=== PATIENT | female | born 1940 | race Caucasian/White ===

== ENCOUNTER 2016-11-13 08:21 | Inpatient (IN) ==
[2016-11-14 06:13] LABS: Basophils % 0.6 %; Eosinophils # 0.1 K/mcL (0.0-0.6); Eosinophils % 1.7 %; Hematocrit 35.4 % (35.3-44.9); Hemoglobin 12.2 g/dL (11.5-15.4); Immature Granulocytes % 0.2 % (0-4); Lymphocytes # 0.7 K/mcL (0.6-4.6); Mean Corpuscular HGB Conc 34.5 g/dL (31.6-35.5); Mean Corpuscular Hemoglobin 30.9 pg (28.0-33.3); Mean Corpuscular Volume 89.6 fL (83.0-100.0); Mean Platelet Volume 10.1 fL (9.4-12.4); Monocytes # 0.5 K/mcL (0.0-1.3); Monocytes % 10.3 %; Neutrophils # 3.4 K/mcL (1.6-8.9); Platelet Count 164 K/mcL (140-400); Red Blood Count 3.95 M/mcL (3.82-4.97); Segmented Neutrophils % 73.2 %
[2016-11-14 06:15] LABS: Activated Partial Thrombo Time 31.6 Seconds (26.0-36.0); INR 1.1; Prothrombin Time 11.6 Seconds (9.4-12.1)
[2016-11-14 06:26] LABS: BUN/Creatinine Ratio 19 (6-26); Blood Urea Nitrogen 17 mg/dL (7-20); Calcium 8.8 mg/dL (8.6-10.8); Carbon Dioxide 21 mEq/L (19-29); Chloride 107 mEq/L (98-109); Glucose 100 mg/dL (70-99); Osmolality,Calculated 288 (280-300); Potassium 3.9 mEq/L (3.5-4.5); Sodium 138 mEq/L (136-145); eGFR For African Americans > 60 (> 60); eGFR For Non-African Americans > 60 (> 60)
[2016-11-14] MEDS: Cyanocobalamin (B-12) 1,000 MCG/ML VIAL IM SCH (09:26)
[2016-11-14] MEDS: Aspirin 81 MG TAB.CHEW PO SCH (09:26)
[2016-11-14] MEDS: Multivit/Ca/Min/Fe/FA 1 TAB TABLET PO SCH (09:26)
--- NOTE | 2016-11-14 16:57 | Internal Med History&Physical ---
Date of Encounter: 11/16/16 Time of Encounter: 16:55 Assessment and Plan (1) CVA (cerebral vascular accident) Current visit: Yes Status: Acute Qualifiers: Qualified Code(s): I63.8 - Other cerebral infarction (2) Hypertension Current visit: Yes Status: Acute Qualifiers: Qualified Code(s): I10 - Essential (primary) hypertension (3) Hyperlipidemia Current visit: Yes Status: Acute Qualifiers: Qualified Code(s): E78.5 - Hyperlipidemia, unspecified Internal Medicine - H&P: HPI Chief complaint: Patient was seen by neighbor crawling on her hands and knees along the stre Admitted From: Hospital to Hospital Transfer Plans for Post Hospital Care: Home History of present illness: Ms. Finnegan is a 76 year old female She was treated [facility] and brought to [facility] rehabilitation for rehabilitation. This morning she was given her standard medications which by the way she was not taking any meds at home, and spit them out on the floor when the nurse left Past Med Surg Social Fam HX - Past Medical History Medical history: CVA, dementia, hyperlipidemia, hypertension Psychiatric history: no psych history - Past Surgical History Surgical History: - Social History Smoking Status: Never smoker Smokeless Tobacco Status: No Alcohol use: none Drug use: none - Family History Mother Living Status: Age at : 84 Cause of : in her sleep/unknown cause Internal Medicine - H&P: Meds No Known Home Drugs 11/13/16 [History] Allergies No Known Allergies Allergy (Verified 04/11/16 14:10) All Systems PM: A 10-system review of systems was performed and is negative for pertinent findings except as documented above in the HPI. - Constitutional Vitals: Temp Pulse Resp BP Pulse Ox 98 F 73 18 144/78 98 11/14/16 11:50 11/14/16 11:50 11/14/16 11:50 11/14/16 11:50 11/14/16 11:50 - Head Head exam: Present: atraumatic, normal inspection, normocephalic - Neck Neck exam general surgery: Present: supple, trachea midline. Absent: lymphadenopathy - Respiratory Respiratory exam: Present: CTAB. Absent: accessory muscle use, rales, rhonchi, wheezes - Cardiovascular Cardiovascular exam: Present: RRR, +S1, +S2. Absent: diastolic murmur, gallop, rubs, systolic murmur - GI/Abdominal GI/Abdominal exam: Present: normal bowel sounds, soft, no peritoneal signs. Absent: distended, tenderness Internal Med - H&P Results - Labs CBC & Chem 7: 11/14/16 05:55 11/14/16 05:55 Labs: Short CBC 11/14/16 Range/Units 05:55 WBC 4.7 (4.3-11.1) K/mcL Hgb 12.2 (11.5-15.4) g/dL Hct 35.4 (35.3-44.9) % Plt Count 164 (140-400) K/mcL Neutrophils # 3.4 (1.6-8.9) K/mcL BMP 11/14/16 05:55 Sodium 138 Potassium 3.9 Chloride 107 Carbon Dioxide 21 BUN 17 Creatinine 0.90 Glucose 100 H Calcium 8.8 Lab is stable - VTE Documentation of Mechanical Device: Graduated compression elastic hosiery
[2016-11-15] MEDS: Aspirin 81 MG TAB.CHEW PO SCH (08:07)
[2016-11-15] MEDS: Multivit/Ca/Min/Fe/FA 1 TAB TABLET PO SCH (08:08)
[2016-11-15] MEDS: Cyanocobalamin (B-12) 1,000 MCG/ML VIAL IM SCH (12:21)
--- NOTE | 2016-11-15 13:05 | Internal Med Progress Note ---
Date of Encounter: 11/15/16 Time of Encounter: 13:03 - Assessment and plan (1) CVA (cerebral vascular accident) Current Visit: Yes Status: Acute Assessment and plan: Patient apparently status secondary ischemic cerebral accident Qualifiers: Qualified Code(s): I63.8 - Other cerebral infarction (2) Hypertension Current Visit: Yes Status: Acute Assessment and plan: Patient was not taking any medication prior to her CVA this time. Yesterday she spent the medicine out of the floor. The pressure that was not bad today Qualifiers: Qualified Code(s): I10 - Essential (primary) hypertension (3) Hyperlipidemia Current Visit: Yes Status: Acute Assessment and plan: Noted Qualifiers: Qualified Code(s): E78.5 - Hyperlipidemia, unspecified - Time Spent With Patient less than 15 minutes - Subjective Interval history: No significant change patient is cooperating with therapists. And I have emphasized to her please take her medication. - Constitutional Vitals: Temp Pulse Resp BP Pulse Ox 98.6 F 78 16 138/83 98 11/15/16 07:14 11/15/16 07:14 11/15/16 07:14 11/15/16 07:14 11/15/16 07:14 - Head Head exam: Present: atraumatic, normal inspection, normocephalic - Neck Neck exam general surgery: Present: supple, trachea midline. Absent: lymphadenopathy - Respiratory Respiratory exam: Present: CTAB. Absent: accessory muscle use, rales, rhonchi, wheezes - Cardiovascular Cardiovascular exam: Present: RRR, +S1, +S2. Absent: diastolic murmur, gallop, rubs, systolic murmur Internal Medicine: Result - Labs CBC & Chem 7: 11/14/16 05:55 11/14/16 05:55 Labs: Lab stable - ABG Interpretation ABG results: PT/INR, D-dimer PT 11.6 Seconds (9.4-12.1) 11/14/16 05:55 - VTE Documentation of Mechanical Device: Graduated compression elastic hosiery Consult Discharge Plan - Plan Referrals: Anson Yanez MD [Primary Care Provider] -
[2016-11-16] MEDS: Multivit/Ca/Min/Fe/FA 1 TAB TABLET PO SCH (08:07)
[2016-11-16] MEDS: Cyanocobalamin (B-12) 1,000 MCG/ML VIAL IM SCH (08:07)
[2016-11-16] MEDS: Aspirin 81 MG TAB.CHEW PO SCH (08:07)
--- NOTE | 2016-11-16 13:47 | Internal Med Progress Note ---
Date of Encounter: 11/16/16 Time of Encounter: 13:44 - Assessment and plan (1) CVA (cerebral vascular accident) Current Visit: Yes Status: Acute Assessment and plan: CVA or previous problems worse. She is very dysphasic and her cognitive issue are worse Qualifiers: Qualified Code(s): I63.8 - Other cerebral infarction (2) Hypertension Current Visit: Yes Status: Acute Assessment and plan: Blood pressures controlled Qualifiers: Qualified Code(s): I10 - Essential (primary) hypertension (3) Hyperlipidemia Current Visit: Yes Status: Acute Assessment and plan: Noted Qualifiers: Qualified Code(s): E78.5 - Hyperlipidemia, unspecified - Time Spent With Patient less than 15 minutes - Subjective Interval history: Patient took her meds last 2 days which is an improvement. But they are definitely cognitive problems here. As far as mobility she can get up and walk with standby be fine. But this will recommend any 7 24-hour care - Constitutional Vitals: Temp Pulse Resp BP Pulse Ox 100.1 F H 79 20 153/83 95 11/16/16 07:40 11/16/16 07:40 11/16/16 07:40 11/16/16 07:40 11/16/16 07:40 - Head Head exam: Present: atraumatic, normal inspection, normocephalic - Neck Neck exam general surgery: Present: supple, trachea midline. Absent: lymphadenopathy - Respiratory Respiratory exam: Present: CTAB. Absent: accessory muscle use, rales, rhonchi, wheezes - Cardiovascular Cardiovascular exam: Present: RRR, +S1, +S2. Absent: diastolic murmur, gallop, rubs, systolic murmur Internal Medicine: Result - Labs CBC & Chem 7: 11/14/16 05:55 11/14/16 05:55 Labs: Lab is stable - ABG Interpretation ABG results: PT/INR, D-dimer PT 11.6 Seconds (9.4-12.1) 11/14/16 05:55 - VTE Documentation of Mechanical Device: Graduated compression elastic hosiery Consult Discharge Plan - Plan Referrals: Anson Yanez MD [Primary Care Provider] -
--- NOTE | 2016-11-16 14:31 | Psychological Evaluation ---
Date of Encounter: 11/16/16 Time of Encounter: 11:00 History of Present Illness History of present illness: Ms. Finnegan is a 76 year old female admitted to [facility] for inpatient rehabilitation following a recent CVA. She was seen on this date to assess her current cognitive and emotional functioning. Past Medical History Medical history: Significant for HTN, hyperlipidemia and previous CVA. - Psychiatric History Psychiatric history: Reports: no psych history Additional Psychiatric History: There is also no family history of psychiatric or mental health disorders. Home Medications and Allergies No Known Home Drugs 11/13/16 [History] Allergies No Known Allergies Allergy (Verified 04/11/16 14:10) Social History - Social History Social History: Ms. Finnegan was unable to provide personal or psychosocial information due to her cognitive/language impairments. Medical records indicate that she was living alone prior to this admission and that she has a daughter. During this evaluation, she reported that she had never and had no children. She also reported that she lives in [place]. - Tobacco Use Smoking Status: Never smoker - Alcohol Use Alcohol Use: none Cognitive/Emotional Assessment - Cognitive Ability Additional Findings: Ms. Finnegan was alert and attempted to respond to questions. She exhibited a slow, delayed response rate and spoke in whispers that were barely audible. She was not fully oriented for person (knew her name and month/date but not her age or year of ); place (reported that we were in [facility]); or the date. She was unable to do sentence repetition, mental arithmetic or confrontational naming. She was unable to follow verbal commands but performance improved slightly with visual cueing. Verbal statements/words and her movements were all performed at a slow rate. Unable to assess delayed verbal recall/memory. - Emotional Status Additional Findings: Ms. Finnegan was pleasant and cooperative but not engaging. Most of her verbal responses were limited to a few words. She denied any pain complaints and described her mood as "happy". She displayed restricted affect and mood was somber. There were no signs of agitation, irritability, tearfulness or distress. Assessment & Plan - Treatment Plan Treatment Plan/Recommendations: Ms. Finnegan will need assistance to complete routine daily activities when she returns to her home and she will need 24-hour supervision. While she is a patient at [facility], information will need to be presented in multiple modalities ( visual, verbal and with gestures/behavioral cues). Will monitor for signs of frustration/agitation while she is a patient at [facility]. Procedures - Session Time Session Start Time: 11:00 Session Stop Time: 11:30
--- NOTE | 2016-11-16 15:16 | Physcial Medicine-Consult Note ---
Date of Encounter: 11/23/16 Time of Encounter: 13:54 Physical Medicine - AP (1) CVA (cerebral vascular accident) Status: Acute Assessment and plan: 1. 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 She is able to ambulate with a walker with CGA with cues for direction. She has severe cognitive impairment which is her primary barrier to discharge. We will continue with intensive PT/ OT/ST/TR. She will require 24 hour supervision. Code(s): I63.9 - Cerebral infarction, unspecified SNOMED Code(s): 802844385 Physical Medicine - HPI - Data of Consult Consult date: 11/16/16 Requesting Physician: Can Amaya DO Primary Care Provider: Anson Yanez, - Consult Narrative Reason for consult: CVA History of present illness: Ms. Finnegan is a 76 year old female with a history of previous basal ganglia infarct n 2013 who was found crawling in the street by a neighbor. Patient presented to [facility] with aphasia, limited ability to follow commands. Initial head CT revealed no acute infarct. An mri of her brain revealed an old left basal ganglia infarct, remote lacunar infarct in the right amando of the brainstem and white matter ischemic changes. She was stabilized and transferred to inpatient rehabilitation. CC: Can Amaya DO Past Med Surg Social Fam HX - Past Medical History Medical history: CVA, dementia, hyperlipidemia, hypertension Psychiatric history: no psych history - Past Surgical History Surgical History: - Social History Smoking Status: Never smoker Smokeless Tobacco Status: No Alcohol use: none Drug use: none - Family History Mother Living Status: Age at : 84 Cause of : in her sleep/unknown cause Medications and Allergies Aspirin 81 mg PO DAILY #0 tab.chew 11/22/16 [Rx] Atorvastatin [Lipitor] 80 mg PO HS #0 tablet 11/22/16 [Rx] Clopidogrel [Plavix] 75 mg PO DAILY #0 tablet 11/22/16 [Rx] Cyanocobalamin (B-12) [Vitamin B12] 1,000 mcg IM Ross@0900 #0 vial 11/22/16 [Rx] Lisinopril [Zestril] 10 mg PO DAILY #0 tablet 11/22/16 [Rx] Multivit/Ca/Min/Fe/FA [Thera M Plus] 1 tab PO DAILY #0 tablet 11/22/16 [Rx] Allergies No Known Allergies Allergy (Verified 04/11/16 14:10) ROS unobtainable: due to mental status Physical Medicine - Exam - Constitutional Vitals: Temp Pulse Resp BP Pulse Ox 100.1 F H 79 20 153/83 95 11/16/16 07:40 11/16/16 07:40 11/16/16 07:40 11/16/16 07:40 11/16/16 07:40 General appearance: average body habitus, thin Exam: Patient is unable to follow verbal commands, inconsistent with ability to follow commands with visual cues. She is unable to state her name. Very low volume verbalization which is incomprehensible. - Head Additional comments: Left facial droop. Poor dentition. Patient unable to cooperate for cranial nerve testing. - Respiratory Respiratory exam: Present: CTAB - Cardiovascular Cardiovascular exam: Present: RRR - GI/Abdominal GI/Abdominal exam: Present: normal bowel sounds, soft. Absent: tenderness - Extremities Exam Extremities exam: Present: full ROM. Absent: calf tenderness Additional comments: No pain with PROM of the bilateral upper and lower limbs. She has limited active movement in the right upper limb. Patient has antigravity strength in all 4 limbs. Physical Medicine - Results - Labs CBC & Chem 7: 11/21/16 05:25 11/21/16 05:25 Consult Discharge Plan - Plan Referrals: Anson Yanez MD [Primary Care Provider] -
[2016-11-17] MEDS: Multivit/Ca/Min/Fe/FA 1 TAB TABLET PO SCH (09:47)
[2016-11-17] MEDS: Cyanocobalamin (B-12) 1,000 MCG/ML VIAL IM SCH (09:47)
[2016-11-17] MEDS: Aspirin 81 MG TAB.CHEW PO SCH (09:47)
--- NOTE | 2016-11-17 10:59 | Internal Med Progress Note ---
Date of Encounter: 11/17/16 Time of Encounter: 10:57 - Assessment and plan (1) CVA (cerebral vascular accident) Current Visit: Yes Status: Acute Assessment and plan: Patient had CVA compounding previous problems. She is dysphasic and I think that there are cognitive problems Qualifiers: Qualified Code(s): I63.8 - Other cerebral infarction (2) Hypertension Current Visit: Yes Status: Acute Assessment and plan: Lab pressures controlled Qualifiers: Qualified Code(s): I10 - Essential (primary) hypertension (3) Hyperlipidemia Current Visit: Yes Status: Acute Assessment and plan: Noted Qualifiers: Qualified Code(s): E78.5 - Hyperlipidemia, unspecified - Time Spent With Patient less than 15 minutes - Subjective Interval history: Need to check to see if patient took her meds. But she is cooperating with therapists but just looks at me when I talk to her. No response - Constitutional Vitals: Temp Pulse Resp BP Pulse Ox 98.2 F 98 18 150/89 95 11/17/16 07:28 11/17/16 07:28 11/17/16 07:28 11/17/16 07:28 11/17/16 07:28 - Head Head exam: Present: normal inspection - Neck Neck exam general surgery: Present: supple, trachea midline. Absent: lymphadenopathy - Respiratory Respiratory exam: Present: CTAB. Absent: accessory muscle use, rales, rhonchi, wheezes - Cardiovascular Cardiovascular exam: Present: RRR, +S1, +S2. Absent: diastolic murmur, gallop, rubs, systolic murmur Internal Medicine: Result - Labs CBC & Chem 7: 11/14/16 05:55 11/14/16 05:55 Labs: Lab is okay - ABG Interpretation ABG results: PT/INR, D-dimer PT 11.6 Seconds (9.4-12.1) 11/14/16 05:55 - VTE Documentation of Mechanical Device: Graduated compression elastic hosiery Consult Discharge Plan - Plan Referrals: Anson Yanez MD [Primary Care Provider] -
[2016-11-18] MEDS: Multivit/Ca/Min/Fe/FA 1 TAB TABLET PO SCH (13:01)
[2016-11-18] MEDS: Aspirin 81 MG TAB.CHEW PO SCH (13:01)
[2016-11-18] MEDS: Cyanocobalamin (B-12) 1,000 MCG/ML VIAL IM SCH (13:01)
--- NOTE | 2016-11-18 13:43 | Internal Med Progress Note ---
Date of Encounter: 11/18/16 Time of Encounter: 13:41 - Assessment and plan (1) CVA (cerebral vascular accident) Status: Acute Assessment and plan: Patient's here for therapy due to CVA Qualifiers: CVA mechanism: other Qualified Code(s): I63.8 - Other cerebral infarction (2) Hypertension Status: Acute Assessment and plan: Blood pressures controlled Qualifiers: Hypertension type: essential hypertension Qualified Code(s): I10 - Essential (primary) hypertension (3) Hyperlipidemia Status: Acute Assessment and plan: Noted Qualifiers: Qualified Code(s): E78.5 - Hyperlipidemia, unspecified - Time Spent With Patient less than 15 minutes - Subjective Interval history: Need to check to see if patient took her meds. But she is cooperating with therapists but just looks at me when I talk to her. No response patient is taking her meds right now regularly.. - Constitutional Vitals: Temp Pulse Resp BP Pulse Ox 99.1 F 91 16 138/83 96 11/18/16 07:21 11/18/16 07:21 11/18/16 07:21 11/18/16 07:21 11/18/16 07:21 - Head Head exam: Present: atraumatic, normal inspection, normocephalic - Neck Neck exam general surgery: Present: supple, trachea midline. Absent: lymphadenopathy - Respiratory Respiratory exam: Present: CTAB. Absent: accessory muscle use, rales, rhonchi, wheezes - Cardiovascular Cardiovascular exam: Present: RRR, +S1, +S2. Absent: diastolic murmur, gallop, rubs, systolic murmur Internal Medicine: Result - Labs CBC & Chem 7: 11/21/16 05:25 11/21/16 05:25 Labs: Lab is stable lab is stable - ABG Interpretation ABG results: PT/INR, D-dimer PT 11.6 Seconds (9.4-12.1) 11/14/16 05:55 - VTE Documentation of Mechanical Device: Graduated compression elastic hosiery Consult Discharge Plan - Plan Referrals: Anson Yanez MD [Primary Care Provider] -
[2016-11-19] MEDS: Multivit/Ca/Min/Fe/FA 1 TAB TABLET PO SCH (08:11)
[2016-11-19] MEDS: Aspirin 81 MG TAB.CHEW PO SCH (08:11)
[2016-11-19] MEDS: Cyanocobalamin (B-12) 1,000 MCG/ML VIAL IM SCH (08:12)
--- NOTE | 2016-11-19 11:44 | Internal Med Progress Note ---
Date of Encounter: 11/19/16 Time of Encounter: 11:42 - Assessment and plan (1) CVA (cerebral vascular accident) Current Visit: Yes Status: Acute Assessment and plan: Patient exhibits severe global aphasia. She is able to ambulate with a walker with CGA with cues for direction. She has severe cognitive impairment which is her primary barrier to discharge. We will continue with intensive PT/OT/ST/TR. She will require 24 hour supervision.Patient's here for therapy due to CVA Qualifiers: CVA mechanism: other Qualified Code(s): I63.8 - Other cerebral infarction - Time Spent With Patient less than 15 minutes - Subjective Interval history: Patient cannot verbalize any specific complaint but no new complaints reported by nursing staff. - Constitutional Vitals: Temp Pulse Resp BP Pulse Ox 98.7 F 78 18 120/74 98 11/19/16 07:09 11/19/16 07:09 11/19/16 07:09 11/19/16 07:09 11/19/16 07:09 General appearance: Present: no acute distress - Respiratory Respiratory exam: Present: CTAB. Absent: accessory muscle use, rales, rhonchi, wheezes - Cardiovascular Cardiovascular exam: Present: RRR, +S1, +S2. Absent: diastolic murmur, gallop, rubs, systolic murmur - GI/Abdominal GI/Abdominal exam: Present: normal bowel sounds, soft, no peritoneal signs. Absent: distended, tenderness - Extremities Exam Extremities exam: Present: warm, radial pulses palpable and symetrical. Absent : calf tenderness, cyanotic, pedal edema - Neurological Exam Neurological exam: Present: speech deficit Additional comments: Patient has global aphasia and generalized weakness. He has evidence of dementia. Flat affect noted Internal Medicine: Result - Labs CBC & Chem 7: 11/14/16 05:55 11/14/16 05:55 - ABG Interpretation ABG results: PT/INR, D-dimer PT 11.6 Seconds (9.4-12.1) 11/14/16 05:55 - VTE Documentation of Mechanical Device: Graduated compression elastic hosiery Consult Discharge Plan - Plan Referrals: Anson Yanez MD [Primary Care Provider] -
[2016-11-20] MEDS: Aspirin 81 MG TAB.CHEW PO SCH (08:57)
[2016-11-20] MEDS: Cyanocobalamin (B-12) 1,000 MCG/ML VIAL IM SCH (08:57)
[2016-11-20] MEDS: Multivit/Ca/Min/Fe/FA 1 TAB TABLET PO SCH (08:57)
--- NOTE | 2016-11-20 10:56 | Internal Med Progress Note ---
Date of Encounter: 11/20/16 Time of Encounter: 10:55 - Assessment and plan (1) CVA (cerebral vascular accident) Current Visit: Yes Status: Acute Assessment and plan: Patient exhibits severe global aphasia. She is able to ambulate with a walker with CGA with cues for direction. She has severe cognitive impairment which is her primary barrier to discharge. We will continue with intensive PT/OT/ST/TR. She will require 24 hour supervision.Patient's here for therapy due to CVA Qualifiers: CVA mechanism: other Qualified Code(s): I63.8 - Other cerebral infarction - Time Spent With Patient less than 15 minutes - Subjective Interval history: Patient cannot verbalize any specific complaint but no new complaints reported by nursing staff. - Constitutional Vitals: Temp Pulse Resp BP Pulse Ox 98.4 F 76 16 128/76 95 11/20/16 07:01 11/20/16 07:01 11/20/16 07:01 11/20/16 07:01 11/20/16 07:01 General appearance: Present: disheveled, no acute distress - Respiratory Respiratory exam: Present: CTAB. Absent: accessory muscle use, rales, rhonchi, wheezes - Cardiovascular Cardiovascular exam: Present: RRR, +S1, +S2. Absent: diastolic murmur, gallop, rubs, systolic murmur - GI/Abdominal GI/Abdominal exam: Present: normal bowel sounds, soft, no peritoneal signs. Absent: distended, tenderness Internal Medicine: Result - Labs CBC & Chem 7: 11/14/16 05:55 11/14/16 05:55 - ABG Interpretation ABG results: PT/INR, D-dimer PT 11.6 Seconds (9.4-12.1) 11/14/16 05:55 - VTE Documentation of Mechanical Device: Graduated compression elastic hosiery Consult Discharge Plan - Plan Referrals: Anson Yanez MD [Primary Care Provider] -
[2016-11-21 05:55] LABS: Basophils # 0.1 K/mcL (0.0-0.2); Basophils % 0.8 %; Eosinophils # 0.3 K/mcL (0.0-0.6); Eosinophils % 3.6 %; Immature Granulocytes % 0.7 % (0-4); Lymphocytes # 1.3 K/mcL (0.6-4.6); Lymphocytes % 18.1 %; Mean Corpuscular HGB Conc 34.3 g/dL (31.6-35.5); Mean Corpuscular Hemoglobin 30.7 pg (28.0-33.3); Mean Corpuscular Volume 89.5 fL (83.0-100.0); Mean Platelet Volume 10.4 fL (9.4-12.4); Monocytes # 0.7 K/mcL (0.0-1.3); Monocytes % 9.9 %; Neutrophils # 4.9 K/mcL (1.6-8.9); Platelet Count 313 K/mcL (140-400); Red Blood Count 3.91 M/mcL (3.82-4.97); Red Cell Distribution Width 13.2 % (11.5-14.5); Segmented Neutrophils % 66.9 %
[2016-11-21 06:04] LABS: BUN/Creatinine Ratio 24 (6-26); Blood Urea Nitrogen 20 mg/dL (7-20); Calcium 9.1 mg/dL (8.6-10.8); Carbon Dioxide 21 mEq/L (19-29); Chloride 105 mEq/L (98-109); Glucose 101 mg/dL (70-99); Osmolality,Calculated 287 (280-300); Potassium 4.3 mEq/L (3.5-4.5); Sodium 137 mEq/L (136-145); eGFR For African Americans > 60 (> 60); eGFR For Non-African Americans > 60 (> 60)
[2016-11-21 06:13] LABS: Platelet Estimate Normal (Normal); Reactive Lymphocytes Present (Not Present)
[2016-11-21] MEDS: Aspirin 81 MG TAB.CHEW PO SCH (07:55)
[2016-11-21] MEDS: Multivit/Ca/Min/Fe/FA 1 TAB TABLET PO SCH (07:55)
[2016-11-21] MEDS ORDERED: Cyanocobalamin (B-12) 1,000 MCG/ML VIAL IM SCH (09:00)
--- NOTE | 2016-11-21 13:20 | Internal Med Progress Note ---
Date of Encounter: 11/21/16 Time of Encounter: 13:18 - Assessment and plan (1) CVA (cerebral vascular accident) Current Visit: Yes Status: Acute Assessment and plan: Patient is here for recurrent CVA. Qualifiers: CVA mechanism: other Qualified Code(s): I63.8 - Other cerebral infarction (2) Hypertension Current Visit: No Status: Acute Assessment and plan: Blood pressures well controlled Qualifiers: Hypertension type: essential hypertension Qualified Code(s): I10 - Essential (primary) hypertension (3) Hyperlipidemia Current Visit: No Status: Acute Assessment and plan: This note Qualifiers: Qualified Code(s): E78.5 - Hyperlipidemia, unspecified - Time Spent With Patient less than 15 minutes - Subjective Interval history: Patient is not cognitively intact. If she needs 724 hour care. environmental services tech to meet with her daughter and we will make a decision on disposition - Constitutional Vitals: Temp Pulse Resp BP Pulse Ox 98.5 F 87 16 118/73 95 11/21/16 07:12 11/21/16 07:12 11/21/16 07:12 11/21/16 07:12 11/21/16 07:12 General appearance: Present: disheveled, no acute distress - Head Head exam: Present: atraumatic, normal inspection, normocephalic - Neck Neck exam general surgery: Present: supple, trachea midline. Absent: lymphadenopathy - Cardiovascular Cardiovascular exam: Present: RRR, +S1, +S2. Absent: diastolic murmur, gallop, rubs, systolic murmur - GI/Abdominal GI/Abdominal exam: Present: normal bowel sounds, soft, no peritoneal signs. Absent: distended, tenderness Internal Medicine: Result - Labs CBC & Chem 7: 11/21/16 05:25 11/21/16 05:25 Labs: Short CBC 11/21/16 Range/Units 05:25 WBC 7.3 D (4.3-11.1) K/mcL Hgb 12.0 (11.5-15.4) g/dL Hct 35.0 L (35.3-44.9) % Plt Count 313 D (140-400) K/mcL Neutrophils # 4.9 (1.6-8.9) K/mcL BMP Lab looks good lab is stable 11/21/16 05:25 Sodium 137 Potassium 4.3 Chloride 105 Carbon Dioxide 21 BUN 20 Creatinine 0.85 Glucose 101 H Calcium 9.1 - ABG Interpretation ABG results: PT/INR, D-dimer PT 11.6 Seconds (9.4-12.1) 11/14/16 05:55 - VTE Documentation of Mechanical Device: Graduated compression elastic hosiery Consult Discharge Plan - Plan Referrals: Anson Yanez MD [Primary Care Provider] -
[2016-11-22 07:10] VITALS: BP 135/78
[2016-11-22] MEDS: Aspirin 81 MG TAB.CHEW PO SCH (08:34)
[2016-11-22] MEDS: Multivit/Ca/Min/Fe/FA 1 TAB TABLET PO SCH (08:34)
--- NOTE | 2016-11-22 11:55 | Discharge Summary ---
Date of Encounter: 11/22/16 Time of Encounter: 11:53 - Discharge Diagnosis (1) CVA (cerebral vascular accident) Priority: Primary Status: Acute Comments: Patient has cognitive issues and cannot live alone Qualifiers: CVA mechanism: other Qualified Code(s): I63.8 - Other cerebral infarction (2) Hypertension Priority: Secondary Status: Acute Qualifiers: Hypertension type: essential hypertension Qualified Code(s): I10 - Essential (primary) hypertension (3) Hyperlipidemia Priority: Secondary Status: Acute Qualifiers: Qualified Code(s): E78.5 - Hyperlipidemia, unspecified - Discharge Medications Home Medications: No Known Home Drugs 11/13/16 [History] Allergies/Adverse Reactions: Allergies No Known Allergies Allergy (Verified 04/11/16 14:10) Date of admission: 11/13/16 17:43 Primary care physician: Anson Yanez, Consults: 11/13/16 18:21 Consult to Occupational Therapy [CONS] Routine Comment: Evaluate, develop and implement POC Consult to Physical Therapy [CONS] Routine Comment: Evaluate, develop and implement POC Consult to Recreational Therapy [CONS] Routine Comment: Evaluate, develop and implement POC Consult to Speech Therapy [CONS] Routine Comment: Evaluate, develop and implement POC Reason for Consult: CVA, expressive aphasia Call Completed: Yes 11/14/16 17:27 Consult to Psychology [CONS] Routine Consulting Provider: Leah Hernandez Reason for Consult: cva Time Notified: 16:00 Call Completed: No Discharging clinician: Can Amaya Anticipated date of discharge: 11/22/16 - Patient Status Disposition: Transfer SNF Condition: Fair Functional capacity at discharge: uses cane/walker Overall status at discharge: patient is not back to baseline - Discharge Instructions Follow Up With: Anson Yanez MD [Primary Care Provider] - - Diet and Activity Activity: ambulate only with your walker Diet: advance to your usual diet Interval History: 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 There are significant cognitive difficulties. Hospital course: Ms. Finnegan is a 76 year old female - Time Spent with Patient Total time spent providing and/or coordinating discharge services: - Constitutional Vitals: Temp Pulse Resp BP Pulse Ox 98.0 F 78 16 135/78 98 11/22/16 07:00 11/22/16 07:00 11/22/16 07:00 11/22/16 07:00 11/22/16 07:00 General appearance: Present: disheveled, no acute distress - Head Head exam: Present: atraumatic, normal inspection, normocephalic - Neck Neck exam general surgery: Present: supple, trachea midline. Absent: lymphadenopathy - Respiratory Respiratory exam: Present: CTAB. Absent: accessory muscle use, rales, rhonchi, wheezes - Cardiovascular Cardiovascular exam: Present: RRR, +S1, +S2. Absent: diastolic murmur, gallop, rubs, systolic murmur - VTE Documentation of Mechanical Device: Graduated compression elastic hosiery
--- NOTE | 2016-11-22 11:57 | Physician Discharge Referral ---
ExtendedCare Referral Info Transfer To: ECF. Patient cannot live alone. Provider in Charge after Transfer: PCP Institutional Level of Care: Skilled - Diagnosis (1) CVA (cerebral vascular accident) Priority: Primary Status: Acute (2) Hypertension Priority: Secondary Status: Acute (3) Hyperlipidemia Priority: Secondary Status: Acute Prognosis: Poor Aware of Diagnosis: Family Aware of Prognosis: Family - Transfer Medications Home Medications: No Known Home Drugs 11/13/16 [History] Allergies/Adverse Reactions: Allergies No Known Allergies Allergy (Verified 04/11/16 14:10) - Respiratory Orders Smoking Cessation: Smoking cessation has been advised. For more information, call the [place] Tobacco Quit Line at [phone]-EZZINOW. CERTIFICATION: I certify that the transfer of the above named patient to an Extended Care Facility is necessary for the continuing treatment of the diagnosis listed. The above information is true and accurate reflection of patient's current condition. Confidential - Redisclosure prohibited without a patient's written consent.
[2016-11-27] MEDS ORDERED: Cyanocobalamin (B-12) 1,000 MCG/ML VIAL IM SCH (09:00)
== END 2016-11-22 15:35 | DRG 57 ==
LOC: INPGRE 17:43
PROVIDERS: ADMIT Internal Medicine; ATTEND Internal Medicine